=== PATIENT | male | born 1990 | race African-American/Black ===

== ENCOUNTER → 2018-11-28 14:37 | Outpatient (CLI) | payer MEDICAID, SELFPAY ==
--- NOTE | 2018-11-28 | DI.CT.S_ITS ---
PROCEDURE: CT MASTOID TEMPORAL INDICATIONS: Cholesteatoma of mastoid, left ear COMPARISON: [facility], CT, TEMPORAL/MASTOIDS W/O CONTRAST, 05/25/2016, 15:47. TECHNIQUE: Noncontrast 0.6 mm thick direct axial and coronal sections acquired through each temporal bone separately. FINDINGS: Image quality: Excellent. RIGHT: External auditory canal: Canal has a normal appearance. Middle ear: The middle ear structures, including the ossicles and tympanic membrane, appear normal. No abnormal fluid or soft tissue density. Inner ear: Inner ear is normally formed and appears unremarkable. Facial nerve appears normal throughout is course. Mastoids: Mastoid air cells are clear. LEFT: External auditory canal: Canal has a normal appearance. Middle ear: The middle ear structures, including the ossicles and tympanic membrane, appear normal. No abnormal fluid or soft tissue density. Inner ear: Inner ear is normally formed and appears unremarkable. Facial nerve appears normal throughout its course. Mastoids: Left mastectomy changes are seen. MISCELLANEOUS: Visualized surrounding bones appear unremarkable. Visualized intracranial structures, including the cerebellopontine angle cisterns, appear normal. IMPRESSION: Prior left sided postoperative changes are seen, with mastoidectomy. No findings of recurrent cholesteatoma are detected. Dictated by: Rambo Weisntein M.D. on 11/28/2018 at 16:10 Approved by: Rambo Weinstein M.D. on 11/28/2018 at 16:11
== END ==
PROVIDERS: Visit Provider Otolaryngology Facial Plastic Surgery
DX: H71.22 Cholesteatoma of mastoid, left ear (principal); Z98.890 Other specified postprocedural states
CPT/HCPCS: 70486

== ENCOUNTER 2021-12-25 00:04 | Emergency (ER) | payer OTHER, MEDICAID, SELFPAY ==
[2021-12-25 00:11] VITALS: BP 148/78; PULSE 120; RESP 18; TEMP 36.2; O2SAT 100
--- NOTE | 2021-12-25 00:26 | DI.RAD.S_ITS ---
PROCEDURE: XR CHEST 1V INDICATIONS: chest pain TECHNIQUE: One view of the chest was acquired. COMPARISON: None. FINDINGS: Surgical changes and devices: None. Lungs and pleura: Lungs are clear. No pleural effusions or pneumothorax. Mediastinum: Mediastinal contours appear normal. Heart size is normal. Bones and chest wall: No suspicious bony lesions. Overlying soft tissues appear unremarkable. IMPRESSION: Normal for age, source of current chest pain symptoms is not seen. Dictated by: Amor Claros M.D. on 12/25/2021 at 1:09 Approved by: Amor Claros M.D. on 12/25/2021 at 1:09
[2021-12-25 00:32] VITALS: PULSE 100; RESP 16; O2SAT 98
[2021-12-25 00:39] LABS: Alanine Aminotransferase 23 IU/L (<50); Albumin 4.6 g/dL (3.5-5.0); Albumin Globulin Ratio 1.7 (1.0-2.8); Alkaline Phosphatase 52 U/L (38-126); Aspartate Aminotransferase 28 IU/L (17-59); BUN Creatinine Ratio 14.8 (6-22); Bilirubin Total 0.9 mg/dL (0.2-1.3); Blood Urea Nitrogen 16 mg/dL (9-20); Calcium 9.1 mg/dL (8.4-10.2); Carbon Dioxide 23 mmol/L (22-32); Chloride 103 mmol/L (98-107); Creatine Kinase 250 U/L (55-170); Estimated Glomerular Filt Rate > 60 mL/min (>60); Globulin 2.7 g/dL (1.7-4.1); Glucose 142 mg/dL (70-100); HEMOLYSIS < 15 (0-50); Lipase 332 U/L (23-300); Potassium 3.7 mmol/L (3.4-5.1); Sodium 137 mmol/L (137-145); Total Protein 7.3 g/dL (6.3-8.2)
[2021-12-25 00:50] LABS: Add Manual Diff / Slide Review NO; Basophils Absolute Auto 0 /uL (0-100); Basophils Percent Auto 0.6 % (0-2); Eosinophils Absolute Auto 200 /uL (0-450); Eosinophils Percent Auto 2.4 % (2-4); Hematocrit 39.7 % (41-53); Hemoglobin 13.7 g/dL (13.5-17.5); Lymphocytes Absolute Auto 3200 /uL (1100-4500); Lymphocytes Percent Auto 48.2 % (25-40); Mean Corpuscular HGB Conc 34.4 % (30-36); Mean Corpuscular Hemoglobin 28.1 PG (26-34); Mean Corpuscular Volume 81.5 fL (80-100); Monocytes Absolute Auto 500 /uL (0-900); Monocytes Percent Auto 7.5 % (3-14); Neutrophils Absolute Auto 2700 /uL (1500-7000); Neutrophils Percent Auto 41.3 % (50-75); Platelet Count 256 X10^3/uL (150-400); Red Blood Cell Count 4.87 X10^6/uL (4.5-5.9); Red Cell Distribution Width 14.6 % (11.6-14.8); White Blood Cell Count 6.6 X10^3/uL (4.5-11.0)
[2021-12-25 00:51] LABS: Troponin I < 0.012 ng/mL (0.01-0.034)
[2021-12-25 00:55] LABS: CKMB % Relative Index 0.6 % (1.5-5.0); Creatine Kinase MB 1.44 ng/mL (<2.37)
[2021-12-25 01:00] VITALS: BP 120/75; PULSE 98; RESP 17; O2SAT 98
--- NOTE | 2021-12-25 01:13 | ED_ITS ---
HPI - Chest Pain General Chief Complaint: Chest Pain Stated Complaint: chest pain x1 hour Time Seen by Provider: 12/25/21 00:58 Source: patient Mode of arrival: Ambulatory Limitations: no limitations History of Present Illness HPI narrative: 31-year-old otherwise healthy gentleman comes in with complaints of heart pain and vomiting red emesis tonight. He has no specific medical history does not take any pain medication describes Olson pain that occurs typically on a quarterly basis that lasts for 1-2 minutes and is described as very sharp as if his heart iscaught in an [place]'s shaheen. The emesis that he noted today looked mostly like digested food debris with some bright red debris in it which caused him significant concern which then caused him anxiety which then caused some chest pain. He notes no recent diarrhea no recent black stools. He has had no headache, cough, pleuritic type pain and no lower extremity edema. Related Data Allergies Allergy/AdvReac Type Severity Reaction Status Date / Time Sulfa (Sulfonamide Allergy Verified 12/25/21 00:46 Antibiotics) Review of Systems Review of Systems Narrative: Remainder of complete review of systems is otherwise unremarkable except for that included in the HPI. Patient History Social History Smoking Status: Never smoker Smoking Status: Never smoker alcohol intake frequency: a few times a week Substance Use Type: marijuana Exam Initial Vital Signs Initial Vital Signs: Vital Signs Temperature 97.2 F L 12/25/21 00:11 Pulse Rate 120 H 12/25/21 00:11 Respiratory Rate 18 12/25/21 00:11 Blood Pressure 148/78 H 12/25/21 00:11 Pulse Oximetry 100 12/25/21 00:11 Oxygen Delivery Method 12/25/21 00:11 General: Healthy appearing, in no acute distress. Able to give a complete and coherent history. Well-nourished well-developed HEENT: Moist mucous membranes, normal sclera with reactive pupils, Neck: No JVD, supple Respiratory: Lungs are clear to auscultation, no wheezing no rales no rhonchi. Full and symmetrical air movement Cardiac: Regular rate and rhythm no murmurs no bruits Abdomen: Soft, nontender, good bowel tones, no flank pain Skin: Warm and dry, no rashes Neurologic: Grossly neurologically intact with no obvious asymmetries or abnormalities Extremities: No trauma, well perfused Psych: Cooperative, appropriate insight and affect Course Orders Ordered: ED Orders 12/25/21 00:14 Complete Blood Count AUTO DIFF Stat Comprehensive Metabolic Panel Stat Lipase Stat Troponin & CK Cardiac Panel Stat 12/25/21 00:26 XR chest 1V Stat EKG-12 Lead Stat Discontinued Medications Aspirin (Aspirin 81 Mg Chew Tab) 324 mg PO NOW ONE Stop: 12/25/21 00:27 Vital Signs Vital signs: Vital Signs - 8 hr 12/25/21 00:11 Temperature 97.2 F L Pulse Rate 120 H Respiratory Rate 18 Blood Pressure 148/78 H Pulse Oximetry 100 Oxygen Delivery Method Room Air MDM - Chest Pain Lab Data Result diagrams: 12/25/21 00:14 12/25/21 00:14 Labs: Lab Results 12/25/21 12/25/21 Range/Units 00:14 00:14 WBC 6.6 (4.5-11.0) X10^3/uL RBC 4.87 (4.5-5.9) X10^6/uL Hgb 13.7 (13.5-17.5) g/dL Hct 39.7 L (41-53) % MCV 81.5 (80-100) fL MCH 28.1 (26-34) PG MCHC 34.4 (30-36) % RDW 14.6 (11.6-14.8) % Plt Count 256 (150-400) X10^3/uL Neut % (Auto) 41.3 L (50-75) % Lymph % (Auto) 48.2 H (25-40) % [place] % (Auto) 7.5 (3-14) % Eos % (Auto) 2.4 (2-4) % Baso % (Auto) 0.6 (0-2) % Neut # (Auto) 2700 (2252-3619) /uL Lymph # (Auto) 3200 (8123-8236) /uL [place] # (Auto) 500 (0-900) /uL Eos # (Auto) 200 (0-450) /uL Baso # (Auto) 0 (0-100) /uL Sodium 137 (137-145) mmol/L Potassium 3.7 (3.4-5.1) mmol/L Chloride 103 (98-107) mmol/L Carbon Dioxide 23 (22-32) mmol/L BUN 16 (9-20) mg/dL Creatinine 1.08 (0.66-1.25) mg/dL Estimated GFR > 60 (>60) mL/min BUN/Creatinine Ratio 14.8 (6-22) Glucose 142 H (70-100) mg/dL Calcium 9.1 (8.4-10.2) mg/dL Total Bilirubin 0.9 (0.2-1.3) mg/dL AST 28 (17-59) IU/L ALT 23 (<50) IU/L Alkaline Phosphatase 52 (38-126) U/L Total Creatine Kinase 250 H (55-170) U/L CK-MB (CK-2) 1.44 (<2.37) ng/mL CK-MB (CK-2) Rel Index 0.6 L (1.5-5.0) % Troponin I < 0.012 (0.01-0.034) ng/mL Total Protein 7.3 (6.3-8.2) g/dL Albumin 4.6 (3.5-5.0) g/dL Globulin 2.7 (1.7-4.1) g/dL Albumin/Globulin Ratio 1.7 (1.0-2.8) Lipase 332 H (23-300) U/L Imaging Data Chest x-ray: Radiologist's Impression: FINDINGS:? ? Surgical changes and devices:? None.? ? Lungs and pleura:? Lungs are clear.? No pleural effusions or pneumothorax.? ? Mediastinum:? Mediastinal contours appear normal.? Heart size is normal.? ? Bones and chest wall:? No suspicious bony lesions.? Overlying soft tissues appear unremarkable.? ? IMPRESSION:? Normal for age, source of current chest pain symptoms is not seen. ? ? Dictated by: Amor Claros M.D. on 12/25/2021 at 1:09? ?? ECG Data Interpretation: Sinus tachycardia at 113 Normal intervals, normal axis No acute ischemic changes MDM Narrative Medical decision making narrative: 31-year-old gentleman with a brief episode of anxiety and chest pain after an episode of emesis. There is no suggestion of hematemesis. No evidence of acute coronary syndrome, anemia, infection or alternate etiology. Reassurance is given today, questions are answered and asked him to follow-up with his primary care provider. Discharge Plan Departure Patient Disposition: Home Clinical Impression: Atypical chest pain Instructions: DI for Atypical Chest Pain Activity Restrictions/Additional Instructions: Thank you for coming in today There is no evidence of an acute heart attack, restrictions around her heart or infection involving your heart muscle, no pulmonary infection, bleeding from your stomach, pneumonia or collapsed lung or pancreatitis At this time I do not have an explanation for the bit of heart pain that you experienced earlier. I do not think that it was life-threatening. With your description of the quarterly episodes of squeezing type pain in your heart I think it is worth reviewing that with your primary care physician. Doing an exercise stress test may be helpful in simply alleviating some of your concerns. In the meantime, making sure that your exercising regularly, eating as healthy as possible, avoiding smoking and minimal alcohol will add significant years to overall heart health.
[2021-12-25 01:30] VITALS: BP 123/74; PULSE 97; O2SAT 98
[2021-12-25 01:48] VITALS: BP 136/71; PULSE 93; RESP 19; O2SAT 99
[2021-12-25 01:56] VITALS: BP 132/78; PULSE 77; RESP 18; O2SAT 98
== END 2021-12-25 01:56 | disposition home or self-care (01) ==
PROVIDERS: Emergency Provider Emergency Medicine
DX: R07.89 Other chest pain (principal)
CPT/HCPCS: 71045; 80053; 82550; 82553; 83690; 84484; 85025; 93005; 93010; 99281; 99284

== ENCOUNTER 2022-08-10 18:31 | Emergency (ER) | payer OTHER, MEDICAID, SELFPAY ==
[2022-08-10 19:18] VITALS: BP 129/78; PULSE 86; RESP 15; TEMP 36.6; O2SAT 99; BMI 29.6
--- NOTE | 2022-08-10 19:20 | DI.RAD.S_ITS ---
PROCEDURE: XR RIBS RT MIN 3V W CXR 1V INDICATIONS: right rib pain TECHNIQUE: Two views of the right ribs were acquired, along with a single view chest. COMPARISON: None. FINDINGS: Surgical changes and devices: None. Bones and chest wall: No displaced rib fracture identified. No suspicious bony lesions. Overlying soft tissues appear unremarkable. Lungs and pleura: No pleural effusions or pneumothorax. Lungs appear clear. Mediastinum: Mediastinal contours appear normal. Heart size is normal. IMPRESSION: 1. No displaced rib fracture identified. Dictated by: Arnol Rahman M.D. on 08/10/2022 at 20:44 Approved by: Arnol Rahman M.D. on 08/10/2022 at 20:45
[2022-08-10 21:36] VITALS: BP 125/79; PULSE 75; RESP 16; O2SAT 99
--- NOTE | 2022-08-10 21:36 | PC.NURSE ---
Patient reports playing basketball on Sunday and was hit to the right side, reports rib pain. Since has developed a scratchy voice and significant pain with cough, pt states unsure if the scratchy voice is related.
--- NOTE | 2022-08-10 21:50 | ED.GENADULT ---
HPI - General Adult General Chief complaint: Abdominal Pain Stated complaint: pain in upper rt side after basketball collision Time Seen by Provider: 08/10/22 21:50 Source: patient Mode of arrival: Ambulatory Limitations: no limitations History of Present Illness HPI narrative: Otherwise healthy 32-year-old male who is here for evaluation of right-sided rib discomfort. Approximately 1 week ago he was involved in a collision while playing basketball where he hit his right side of his ribs. Has had some discomfort since then. Has been putting ice over the area. No fevers. No problems breathing but does have discomfort with movement and palpation. Related Data Allergies Allergy/AdvReac Type Severity Reaction Status Date / Time Sulfa (Sulfonamide Allergy Verified 08/10/22 19:17 Antibiotics) Review of Systems Constitutional Constitutional: Reports system reviewed and no additional complaints, except as documented Cardiovascular Cardiovascular: Reports system reviewed and no additional complaints, except as documented Respiratory Respiratory: Reports system reviewed and no additional complaints, except as documented Integumentary/Breasts Skin/Breast: Reports system reviewed and no additional complaints, except as documented Patient History Social History Smoking Status: Never smoker Smoking Status: Never smoker alcohol intake frequency: holidays/special occasions only Substance Use Type: does not use Exam Initial Vital Signs Initial Vital Signs: Vital Signs Temperature 97.8 F 08/10/22 19:18 Pulse Rate 86 08/10/22 19:18 Respiratory Rate 15 08/10/22 19:18 Blood Pressure 129/78 08/10/22 19:18 Pulse Oximetry 99 08/10/22 19:18 Oxygen Delivery Method 08/10/22 19:18 HENTN Head: normal to inspection and normocephalic Chest Other: Tender right side lateral lower ribs Resp Effort & Inspection: normal respiratory effort Skin Other: Bruising right side no ribs and lateral Neuro General: patient alert, patient awake and moves all extremities Extrem General: normal to inspection Course Orders Ordered: ED Orders 08/10/22 19:20 XR ribs RT min 3V w CXR1V Stat Vital Signs Vital signs: Vital Signs - 8 hr 08/10/22 19:18 08/10/22 21:36 Temperature 97.8 F Pulse Rate 86 75 Respiratory Rate 15 16 Blood Pressure 129/78 125/79 Pulse Oximetry 99 99 Oxygen Delivery Method Room Air Room Air Medical Decision Making Differential Diagnosis Differential Diagnosis: Fracture, pneumothorax, hemothorax, contusion, and others Condition is:: Well Controlled Imaging Data rib x-ray: Radiologist's Impression: [address] [id number] XRay Report Signed Patient: Dwight Ahumada MR#: [id number] : 1990 Acct:[id number] Age/Sex: 32 / M Date of Service: 08/10/22 Loc: ED Accession Number: [id number] ?? Procedure: XR ribs RT min 3V w CXR1V Ordering Provider: Dyllan Connors D.O. PROCEDURE:? XR RIBS RT MIN 3V W CXR 1V ? INDICATIONS:? right rib pain ? TECHNIQUE:? Two views of the right ribs were acquired, along with a single view chest.? ? COMPARISON:? None. ? FINDINGS:? ? Surgical changes and devices:? None.? ? Bones and chest wall:? No displaced rib fracture identified.? No suspicious bony lesions. ?Overlying soft tissues appear unremarkable.? ? Lungs and pleura:? No pleural effusions or pneumothorax.? Lungs appear clear.? ? Mediastinum:? Mediastinal contours appear normal.? Heart size is normal.? ? IMPRESSION:? ? 1. No displaced rib fracture identified. ? ? Dictated by: Arnol Rahman M.D. on 08/10/2022 at 20:44 ? ? Approved by: Arnol Rahman M.D. on 08/10/2022 at 20:45? MDM Narrative Medical decision making narrative: Clear lungs. Not hypoxic. Not tachypneic. Pain controlled. X-ray shows no pneumothorax and also shows no signs of rib fractures. We did discuss this with him. Discharge patient home. He was given return precautions follow-up instructions. He expressed understanding and agreement. Discharge Plan Departure Patient Disposition: Home Clinical Impression: Rib pain on right side Instructions: DI for Rib Contusion Activity Restrictions/Additional Instructions: There were no fractures noted on the rib x-rays today. You can continue to take Tylenol or ibuprofen if you are having significant discomfort. Contact your primary doctor for a follow-up. Return to the emergency department for any new symptoms. Stand Alone Forms: Patient Portal/API
== END 2022-08-10 22:01 | disposition home or self-care (01) ==
PROVIDERS: Emergency Provider Emergency Medicine
DX: R07.81 Pleurodynia (principal); W51.XXXA Accidental striking against or bumped into by another person, initial encounter; Y93.67 Activity, basketball
CPT/HCPCS: 71101; 99281; 99283